=== PATIENT | female | born 1935 | race Caucasian/White ===

== ENCOUNTER → 2016-11-14 | Outpatient (CLI) | payer MEDICARE ==
[~2016-11-14] VITALS: Ht 152.4 cm; Wt 72.5 kg
[~2016-11-14] MED LIST: CALTTAB2 PO; CARV12.5 PO; CARV12.52 PO; DEXTROSE 5% IN WATE 1000ML INJ 1,000 ML IV SCH; DIGO.125 PO; DIGO0.12 PO; DULO1CAP3 PO; FENT75DI T-DERMAL; FENT75DI TD; FOLI1TAB PO; FURO1TAB93 PO; FURO20TA PO; INSULIN HUMAN REGULAR 1,000 UNITS/10 ML VIAL SQ PRN; KLOR20TA6 PO; LACT10SO48 PO; LACT20SO4 PO; LACTATED RINGER'S 1000 ML IV SCH; METF500T PO; METOPROLOL TARTRATE 25 MG TAB PO PRN; OXYC1TAB13 PO; PREV15CA15 PO; PREV30CA36 PO; PROPOFOL 200 MG/20 ML AMP IV ONE; REST15CA PO; SERT50 PO; SODIUM CHLORID 0.9% 500 ML IV SCH; SPIR25 PO; SPIR25TA PO; TAB-TAB PO; TAMO20TA6 PO; VITA400C70 PO; [UNRECOGNIZED DRUG - CODE] PO
[2016-11-14 12:28] VITALS: BP 119/74; PULSE 78; RESP 18; TEMP 98.2; O2SAT 96
[2016-11-14 13:40] VITALS: TEMP 98
[2016-11-14 14:00] VITALS: BP 118/61; PULSE 77; RESP 16; O2SAT 98
--- NOTE | 2016-11-16 19:15 | MR ---
cc: VIRIDIANA WALLS M.D.,LISANDRA Bustillo MD DATE 11/14/16 PREOPERATIVE DIAGNOSIS Abnormal PET scan sigmoid colon POSTOPERATIVE DIAGNOSIS Normal exam. PROCEDURE Total colonoscopy. ANESTHESIA Intravenous monitored anesthesia care SURGEON Dr. Fawn Baker OPERATIVE FINDINGS This patient was sent to me by Dr. Walls for an abnormal PET scan with FDG uptake in the sigmoid colon. For this reason, colonoscopy was recommended. At colonoscopy, no polyps or other mucosal lesions were seen. The prep was overall good. On the right side, there was a little bit of thick fluid precluding an excellent look but no lesions were seen. OPERATIVE TECHNIQUE The patient was placed on a table left lateral position, given intravenous monitored anesthesia care and a colonoscope was introduced through the anal canal, taken to the rectum, sigmoid colon, descending, transverse colon, ascending colon to the cecum. The ileocecal valve was seen as was the base of the appendix. Scope sequentially withdrawn, sequentially looking at the mucosa getting a good look at the mucosa. No polyps or mucosal lesion was seen. Scope was eventually withdrawn. The patient tolerated the procedure well and left the GI lab in good condition. MD ILYA Whipple/ /1:41 PM /6:59 PM
== END ==
LOC: HEND 10:54
PROVIDERS: ATTEND Colon & Rectal Surgery
DX: R93.3 Abnormal findings on diagnostic imaging of other parts of digestive tract (principal); I48.91 Unspecified atrial fibrillation; I10 Essential (primary) hypertension; I25.2 Old myocardial infarction
CPT/HCPCS: 00810; 45378; J7120